=== PATIENT | female | born 1980 | race Caucasian/White ===

== ENCOUNTER → 2017-08-09 | Outpatient (CLI) | payer BC ==
[~2017-08-09] MED LIST: ACE3 PO; IBU800 PO; MOM PO; PREN-127 PO; PREN-67 PO
--- NOTE | 2017-08-10 09:40 | RADIOLOGY IMAGING REPORT ---
[place] [facility] [place] KRISTIE CARSON : [id number] MR: [id number] V: [id number] EXAM DATE: [id number] ORDERING PHYSICIAN: JAIME GUERRA TECHNOLOGIST: Vani Castorena PROCEDURE:BILATERAL DIAGNOSTIC DIGITAL MAMMOGRAM COMPARISON:None. INDICATIONS:RT BREAST LUMP FINDINGS: See report for Right breast Ultrasound. DIAGNOSTIC CATEGORY 2--BENIGN FINDING. RECOMMENDATIONS: ROUTINE MAMMOGRAM AND CLINICAL EVALUATION. IMPRESSION: BIRADS 2: Benign finding. Dictated by: Boubacar Nelson M.D. on 08/09/2017 at 16:37 Transcribed by: ROMERO on 08/10/2017 at 9:06 Approved by: Scotty Flaherty M.D. on 08/10/2017 at 9:39 [facility]
--- NOTE | 2017-08-10 09:40 | RADIOLOGY IMAGING REPORT ---
FACILITY: [facility] PATIENT NAME: KRISTIE CARSON : [id number] MR: [id number] V: [id number] EXAM DATE: [id number] ORDERING PHYSICIAN: JAIME GUERRA TECHNOLOGIST: Perla Garcia PROCEDURE:US RIGHT BREAST COMPLETE COMPARISON:None. INDICATIONS:RT BREAST LUMP FINDINGS: BILATERAL DIAGNOSTIC MAMMOGRAPHY WITH TOMOGRAPHY & COMPUTER ASSISTED DIAGNOSIS: The breasts are heterogeneously dense. Benign appearing asymmetries are scattered bilaterally. RIGHT BREAST ULTRASOUND: Minimal duct ectasia is present in the Right retroareolar region. No other cystic or solid masses are identified. DIAGNOSTIC CATEGORY 2--BENIGN FINDING. RECOMMENDATIONS: ROUTINE MAMMOGRAM AND CLINICAL EVALUATION. Bilateral screening mammography at age 40. IMPRESSION: BIRADS 2: Benign finding. An imaging study negative for malignancy should not deter biopsy if indicated clinically. Dictated by: Boubacar Nelson M.D. on 08/09/2017 at 16:36 Transcribed by: ROMERO on 08/10/2017 at 9:11 Approved by: Scotty Flaherty M.D. on 08/10/2017 at 9:39 [facility]
== END ==
LOC: MAMO 01:31
PROVIDERS: ATTEND Physician Assistant
DX: N60.41 Mammary duct ectasia of right breast (principal)
CPT/HCPCS: 77062; 77066